=== PATIENT | male | born 1940 | race Caucasian/White ===

== ENCOUNTER → 2016-11-26 | Outpatient (CLI) | payer MEDICARE, OTHER ==
[~2016-11-26] MED LIST: ASPIRIN E.C. 8181 MG PO; BENICAR HCT 12.1 TA1 PO; MULTIPLE VITAMI1 CAP PO; PEPCID AC 10MG10 MG PO; PLAVIX 75MG TAB75 MG PO; TOPROL XL100 MG PO; VYTORIN 10 MG-11 TAB PO
== END ==
LOC: COL.RAD 11-25 07:30
DX: Z13.6 Encounter for screening for cardiovascular disorders (principal); Z87.891 Personal history of nicotine dependence

== ENCOUNTER 2018-07-09 18:01 | Inpatient (IN) | payer MEDICARE, OTHER ==
[2018-07-09] VITALS (160 sets, daily range): BP systolic 143; BP diastolic 78; PULSE 60; TEMP 98; O2SAT 95–100
[~2018-07-09] VITALS: Ht 165.1 cm; Wt 72.7 kg
[2018-07-09 18:29] LABS: HEMOGLOBIN 12.6 g/dl (13.5-18.0); MEAN CELL VOLUME 94 fl (80.0-100.0); MEAN CORPUSCULAR HEMOGLOBIN 30 pg (27.0-31.0); MEAN CORPUSCULAR HGB CONC 32 g/dl (33.0-37.0); MEAN PLATELET VOLUME 10.1 fl (7.4-10.4); PLATELET COUNT 167 K/mm3 (130-400); RED BLOOD COUNT 4.17 M/mm3 (4.20-5.60)
[2018-07-09 18:37] LABS: PROTHROMBIN TIME 11.2 SECONDS (9.7-12.8)
[2018-07-09 18:40] LABS: PARTIAL THROMBOPLASTIN TIME 25.6 SECONDS (26.0-37.0)
[2018-07-09] MEDS ORDERED: COZAAR100 MG PO ×2 (18:42→18:54)
[2018-07-09] MEDS ORDERED: HYGROTON 2525 MG/TAB PO (18:42)
[2018-07-09] MEDS ORDERED: LIPITOR 40MG TA40 MG PO (18:42)
[2018-07-09] MEDS ORDERED: TRICOR145 MG PO (18:43)
[2018-07-09] MEDS ORDERED: COREG12.5 MG PO (18:43)
[2018-07-09] MEDS ORDERED: MICARDIS80 MG PO (18:43)
[2018-07-09 18:44] LABS: ALBUMIN 4.2 gm/dL (3.5-5.0); BILIRUBIN,TOTAL 0.5 mg/dL (0.0-1.0); CALCIUM 8.9 mg/dL (8.4-10.2); CREATININE, serum 1.24 mg/dL (0.66-1.25); MAGNESIUM 1.8 mg/dL (1.6-2.3); POTASSIUM 3.6 mmol/L (3.4-5.0); TOTAL PROTEIN 6.5 gm/dL (6.4-8.2)
[2018-07-09] MEDS ORDERED: PROBIOTIC-SUNMARK PO (18:50)
[2018-07-09] MEDS ORDERED: CENTRUM SILVER1 TAB PO (18:51)
[2018-07-09] MEDS ORDERED: ASPIRIN 81M81 MG/TA2 PO (18:52)
[2018-07-09] MEDS ORDERED: PEPCID AC 10MG10 MG PO (18:52)
[2018-07-09 18:55] LABS: TROPONIN-I 0.016 ng/mL (0.000-0.034)
[2018-07-09 19:13] LABS: BASOPHIL 1 % (0-2); EOSINOPHIL 2 % (0-4); LYMPHOCYTE 71 % (20.0-51.0); NEUTROPHILS 25 % (42.0-75.2)
[2018-07-09 19:14] LABS: HYPOCHROMIA 1+
[2018-07-10] VITALS (755 sets, daily range): BP systolic 121–145; BP diastolic 63–73; PULSE 53–63; TEMP 97.6–98.3; O2SAT 58–100
[2018-07-10 01:25] LABS: TROPONIN-I 6 HR POST INITIAL 0.776 ng/mL (0.000-0.034)
[2018-07-10 05:34] LABS: HEMOGLOBIN 11.9 g/dl (13.5-18.0); MEAN CELL VOLUME 91 fl (80.0-100.0); MEAN CORPUSCULAR HEMOGLOBIN 30 pg (27.0-31.0); MEAN CORPUSCULAR HGB CONC 33 g/dl (33.0-37.0); PLATELET COUNT 176 K/mm3 (130-400); RED BLOOD COUNT 3.96 M/mm3 (4.20-5.60); REDCELL DISTRIBUTION WIDTH-CV 13.2 % (11.5-14.5)
[2018-07-10 05:40] LABS: HEMATOCRIT 36.1 % (42.0-52.0)
[2018-07-10 05:59] LABS: ALBUMIN 3.9 gm/dL (3.5-5.0); BILIRUBIN,TOTAL 0.4 mg/dL (0.0-1.0); CALCIUM 8.8 mg/dL (8.4-10.2); CREATININE, serum 0.96 mg/dL (0.66-1.25); TOTAL PROTEIN 6.2 gm/dL (6.4-8.2)
[2018-07-10 06:12] LABS: TROPONIN-I 0.657 ng/mL (0.000-0.034)
[2018-07-10 06:23] LABS: CHOLESTEROL RISK RATIO 6.7
[2018-07-10 06:57] LABS: BAND 6 % (0-10); BASOPHIL 1 % (0-2); EOSINOPHIL 5 % (0-4); NEUTROPHILS 27 % (42.0-75.2); PLATELET ESTIMATE NORMAL (NORMAL)
[2018-07-10 06:58] LABS: LYMPHOCYTE 55 % (20.0-51.0)
[2018-07-10 07:04] LABS: MAGNESIUM 2.2 mg/dL (1.6-2.3)
[2018-07-11] VITALS (620 sets, daily range): BP systolic 80–176; BP diastolic 43–86; PULSE 48–75; TEMP 97.4–98.6; O2SAT 77–100
[2018-07-11 05:47] LABS: HEMATOCRIT 38.3 % (42.0-52.0); HEMOGLOBIN 12.7 g/dl (13.5-18.0); MEAN CELL VOLUME 91 fl (80.0-100.0); MEAN CORPUSCULAR HEMOGLOBIN 30 pg (27.0-31.0); MEAN CORPUSCULAR HGB CONC 33 g/dl (33.0-37.0); PLATELET COUNT 168 K/mm3 (130-400); RED BLOOD COUNT 4.21 M/mm3 (4.20-5.60); REDCELL DISTRIBUTION WIDTH-CV 13.3 % (11.5-14.5)
[2018-07-11 06:01] LABS: CALCIUM 8.9 mg/dL (8.4-10.2); CREATININE, serum 1.05 mg/dL (0.66-1.25); POTASSIUM 3.9 mmol/L (3.4-5.0)
[2018-07-11 06:22] LABS: TROPONIN-I 0.103 ng/mL (0.000-0.034)
[2018-07-11 07:19] LABS: BAND 2 % (0-10); EOSINOPHIL 5 % (0-4); LYMPHOCYTE 64 % (20.0-51.0); NEUTROPHILS 21 % (42.0-75.2); PLATELET ESTIMATE NORMAL (NORMAL)
[2018-07-12] VITALS (472 sets, daily range): BP systolic 115–144; BP diastolic 61–79; PULSE 53–64; TEMP 98.2–98.5; O2SAT 77–99
[2018-07-12 05:52] LABS: HEMATOCRIT 39.8 % (42.0-52.0); HEMOGLOBIN 12.9 g/dl (13.5-18.0); MEAN CELL VOLUME 92 fl (80.0-100.0); MEAN CORPUSCULAR HEMOGLOBIN 30 pg (27.0-31.0); MEAN CORPUSCULAR HGB CONC 32 g/dl (33.0-37.0); MEAN PLATELET VOLUME 10.1 fl (7.4-10.4); PLATELET COUNT 193 K/mm3 (130-400); RED BLOOD COUNT 4.33 M/mm3 (4.20-5.60); REDCELL DISTRIBUTION WIDTH-CV 13.2 % (11.5-14.5)
[2018-07-12 06:02] LABS: CALCIUM 9.2 mg/dL (8.4-10.2); CREATININE, serum 1.13 mg/dL (0.66-1.25); POTASSIUM 3.7 mmol/L (3.4-5.0)
[2018-07-12 07:25] LABS: BAND 3 % (0-10); BASOPHIL 1 % (0-2); EOSINOPHIL 2 % (0-4); METAMYELOCYTE 1 % (0-0); NEUTROPHILS 10 % (42.0-75.2); PLATELET ESTIMATE NORMAL (NORMAL)
[2018-07-12 07:26] LABS: LYMPHOCYTE 78 % (20.0-51.0)
[2018-07-12] MEDS ORDERED: PACERONE400 MG PO (10:08)
[2018-07-12] MEDS ORDERED: BRILINTA90 MG PO (10:08)
[2018-07-12] MEDS ORDERED: COREG 3.123.125 MG/T PO (10:09)
[2018-07-12] MEDS ORDERED: NITROSTAT0.4 MG/TAB SL (10:11)
== END 2018-07-12 10:56 | disposition home or self-care (01) | DRG 246 ==
LOC: COL.ER 18:01 → ICU 19:15
PROVIDERS: Emergency Medicine; Hospitalist; Internal Medicine Cardiovascular Disease; Nurse Practitioner Family
PROC: 027034Z Dilation of Coronary Artery, One Artery with Drug-eluting Intraluminal Device, Percutaneous Approach (ICD-10-PCS; principal; 2018-07-11)
PROC: B2111ZZ Fluoroscopy of Multiple Coronary Arteries using Low Osmolar Contrast (ICD-10-PCS; 2018-07-11)
PROC: B2151ZZ Fluoroscopy of Left Heart using Low Osmolar Contrast (ICD-10-PCS; 2018-07-11)
PROC: 4A023N7 Measurement of Cardiac Sampling and Pressure, Left Heart, Percutaneous Approach (ICD-10-PCS; 2018-07-11)
DX: I47.2 Ventricular tachycardia (principal); I21.4 Non-ST elevation (NSTEMI) myocardial infarction; I10 Essential (primary) hypertension; E78.5 Hyperlipidemia, unspecified; I25.10 Atherosclerotic heart disease of native coronary artery without angina pectoris; K21.9 Gastro-esophageal reflux disease without esophagitis; Z95.5 Presence of coronary angioplasty implant and graft; Z87.891 Personal history of nicotine dependence
CPT/HCPCS: 99222-AI; 99232-AI; 99239; C1725; C1769; C1887; C9600; J0282; J0583; J1644; J1650; J2250; J3010; J3475; J7030; J7060; Q9967

== ENCOUNTER 2023-01-15 19:04 | Emergency (ER) | payer MEDICARE, OTHER ==
[~2023-01-15] VITALS: Ht 162.6 cm; Wt 72.7 kg
[~2023-01-15 19:04] MED LIST changes: +ASPIRIN 81M81 MG/TA2 PO; +BRILINTA90 MG PO; +CENTRUM SILVER1 TAB PO; +COREG 3.123.125 MG/T PO; +COREG12.5 MG PO; +COZAAR100 MG PO; +HYGROTON 2525 MG/TAB PO; +LIPITOR 40MG TA40 MG PO; +MICARDIS80 MG PO; +NITROSTAT0.4 MG/TAB SL; +PACERONE400 MG PO; +PROBIOTIC-SUNMARK PO; +TRICOR145 MG PO
[2023-01-15 19:48] LABS: HEMATOCRIT 44.2 % (42.0-52.0); HEMOGLOBIN 13.9 g/dl (13.5-18.0); MEAN CELL VOLUME 98 fl (80.0-100.0); MEAN CORPUSCULAR HEMOGLOBIN 31 pg (27-31); MEAN CORPUSCULAR HGB CONC 31 g/dl (33.0-37.0); MEAN PLATELET VOLUME 10.5 fl (7.4-10.4); PLATELET COUNT 266 K/mm3 (130-400); RED BLOOD COUNT 4.53 M/mm3 (4.20-5.60); REDCELL DISTRIBUTION WIDTH-CV 13.5 % (11.5-14.5)
[2023-01-15 20:03] LABS: ALBUMIN 4.2 gm/dL (3.4-4.8); BILIRUBIN,TOTAL 0.3 mg/dL (0.2-1.2); CALCIUM 9.8 mg/dL (8.4-10.2); CREATININE, serum 1.21 mg/dL (0.72-1.25); POTASSIUM 4.3 mmol/L (3.5-4.5); TOTAL PROTEIN 7.4 gm/dL (6.2-8.1)
[2023-01-15 20:14] LABS: ARTERIAL BLD GAS O2 SATURATION 94.1 % (92-100); ARTERIAL BLD GAS TCO2 CT 20.4; ARTERIAL BLOOD GAS BASE EXCESS -6.4 (-2-2); ARTERIAL BLOOD GAS HCO3 19.2 meq/L (22-26); ARTERIAL BLOOD GAS PCO2 38.7 mmHg (35-45); ARTERIAL BLOOD GAS PO2 73.5 mmHg (80-100); ARTERIAL BLOOD GAS pH 7.31 (7.35-7.45)
[2023-01-15 20:26] LABS: BAND 7 % (0-10); EOSINOPHIL 5 % (0-4); LYMPHOCYTE 58 % (20.0-51.0); NEUTROPHILS 23 % (42.0-75.2); PLATELET ESTIMATE NORMAL (NORMAL)
[2023-01-15 20:27] LABS: ANISOCYTOSIS 1+; HYPOCHROMIA 2+
[2023-01-15 21:08] LABS: PROTHROMBIN TIME 11.1 SECONDS (9.7-12.8)
[2023-01-15] MEDS ORDERED: COREG12.5 MG PO (21:13)
[2023-01-15 21:16] LABS: PARTIAL THROMBOPLASTIN TIME 29.8 SECONDS (26.0-37.0)
[2023-01-15] MEDS ORDERED: NORVASC 5MG5 MG/TAB PO (21:17)
[2023-01-15] MEDS ORDERED: ALDACTONE 25MG25 M1 PO (21:17)
[2023-01-15] MEDS ORDERED: ZETIA 10MG TAB10 MG PO (21:18)
[2023-01-15] MEDS ORDERED: COZAAR 50MG50 MG/TAB PO (21:27)
[2023-01-15 23:15] VITALS: BP 130/76; PULSE 65; TEMP 97.8
== END 2023-01-15 23:18 | disposition short-term general hospital (02) ==
LOC: COL.ER 19:04
PROVIDERS: Family Medicine
DX: I47.20 Ventricular tachycardia, unspecified (principal); I25.2 Old myocardial infarction; Z95.9 Presence of cardiac and vascular implant and graft, unspecified
CPT/HCPCS: J0282; J1644; J2060; J2405; J7030; J7060

== ENCOUNTER 2023-11-27 19:21 | Emergency (ER) | payer MEDICARE, OTHER ==
[~2023-11-27] VITALS: Ht 162.6 cm; Wt 71.8 kg
[~2023-11-27 19:21] MED LIST changes: +ALDACTONE 25MG25 M1 PO; +COZAAR 50MG50 MG/TAB PO; +NORVASC 5MG5 MG/TAB PO; +ZETIA 10MG TAB10 MG PO
[2023-11-27 19:25] VITALS: TEMP 97.9
[2023-11-27] MEDS ORDERED: Amiodarone 450 MG in D5W Excel 250 ML IV SCH (19:55)
[2023-11-27 20:09] LABS: CALCIUM 9.4 mg/dL (8.4-10.2); CREATININE, serum 1.48 mg/dL (0.72-1.25); POTASSIUM 4.3 mEq/L (3.5-4.5)
[2023-11-27 20:29] LABS: THYROID STIMULATING HORMONE 3.212 uIU/mL (0.350-4.940); TROPONIN-I 0.011 ng/mL (0.00-0.033)
[2023-11-27] MEDS ORDERED: methylPREDNISolone Sod Succ 125 MG/2 ML VIAL IV ONE (20:45)
[2023-11-27] MEDS ORDERED: diphenhydrAMINE 50 MG/ML 1 ML VIAL IV ONE (20:45)
[2023-11-27] MEDS ORDERED: PLAVIX 75MG TAB75 MG PO (20:50)
[2023-11-27] MEDS ORDERED: D5W IV ONE (21:15)
[2023-11-27] MEDS ORDERED: LIDOCAINE IV ONE (21:15)
[2023-11-27 22:15] VITALS: BP 143/75; PULSE 60
[2023-11-28] MEDS ORDERED: Amiodarone 450 MG in D5W Excel 250 ML IV SCH (01:55)
== END 2023-11-27 22:15 | disposition short-term general hospital (02) ==
LOC: COL.ER 19:21
PROVIDERS: Internal Medicine
DX: I47.20 Ventricular tachycardia, unspecified (principal); I25.118 Atherosclerotic heart disease of native coronary artery with other forms of angina pectoris; I10 Essential (primary) hypertension; Z95.0 Presence of cardiac pacemaker
CPT/HCPCS: J0282; J1200; J2001; J2919; J7060